=== PATIENT | female | born 1975 | race Caucasian/White ===

== ENCOUNTER 2024-12-21 21:05 | Emergency (ER) | payer MEDICARE, OTHER, SELFPAY ==
[2024-12-21 21:20] VITALS: BP 147/93
[2024-12-21 21:53] LABS: Hematocrit 39.3 % (37.0-47.0); Hemoglobin 14.1 g/dL (12.0-16.0); Mean Corp Hgb Conc. 35.9 g/dL (33.0-37.0); Mean Corpuscular Volume 94.0 fL (81.0-99.0); Nucleated Red Blood Cells % 0 %; Platelet Count 263 10^3/uL (130-400); Red Cell Dist. Width 12.0 % (11.5-14.5)
[2024-12-21 22:16] LABS: Troponin I < 0.012 ng/ml
[2024-12-21 22:18] LABS: ALT (SGPT) 50 U/L (0-35); AST (SGOT) 31 U/L (14-36); Albumin 5.1 g/dl (3.5-5.0); Alkaline Phosphatase 66 U/L (38-126); Blood Urea Nitrogen 21 mg/dl (7-17); Calcium 10.4 mg/dl (8.4-10.2); Carbon Dioxide 23 mmol/L (22-30); Chloride 105 mmol/L (98-107); Glucose 100 mg/dl (70-99); Potassium 4.0 mmol/L (3.5-5.1); Sodium 140 mmol/L (135-145); Total Protein 8.3 g/dl (6.3-8.2); eGFR 54.80
--- NOTE | 2024-12-22 00:08 | ED.GENMED ---
History of Present Illness
General
Chief Complaint: Heart Rate Problem
Source: patient
Exam Limitations: none
Time Seen by Provider: 12/22/24 00:04
History of Present Illness
History of Present Illness:
49-year-old female with 2+ days of feeling like her heart is fluttering and racing at times. Patient denies chest pain pleuritic pain fever cough. Actually denies shortness of breath. She did not understand what was meant by shortness of breath.
She has no shortness of breath with exertion.
Review of Systems
Review of Systems
All Other Systems: Not applicable
Constitutional: Denies fever or chills
Phy Exam
Physical Exam
Physical Exam:
GENERAL: Alert and oriented in no apparent distress
EYE: Orbits normal.
NECK: Supple, no thyroid palpable
ENT: Pharynx without erythema
CARDIAC: Regular rate and rhythm without any obvious murmurs.
LUNGS: Clear breath sounds,normal
ABDOMEN: Soft, without focal tenderness or distention
NEUROLOGICAL: Alert and oriented , grossly non-focal
SKIN: Warm and dry, no rash or lesion, no discoloration, skin intact.
MUSCULOSKELETAL: No edema,no deformity.Good color
PSYCH: Normal and appropriate interaction.
Course
Orders/Labs/Results
Orders:
Orders
12/21/24 21:25
Electrocardiogram (*1) Urgent
Reason for Study: Chest Pain
Cardiac Monitoring- Treatment ONCE
EKG- Treatment ONCE
IV Insert/Care/Rem.- Treatment PRN
O2 Therapy [RESP] Urgent
Titrate/Wean O2 to maintain O2 sat greater than (%): 90
Special Instructions: Maintain sats >/=90%
Pulse Ox/spot Check [RESP] Urgent
Quantity: 1
Special Instructions: ON ROOM AIR
12/21/24 21:44
Complete Blood Count/With Diff Urgent
Comprehensive Metabolic Panel Urgent
Free T4 Urgent
TSH Reflex To Free T4 Urgent
Comment: ADD ON
Troponin I Urgent
12/22/24 00:04
Add On- LAB Urgent
Tests Added?: tsh reflex t4
Abnormal Lab Results
12/21/24
21:44
RBC 4.18 L 10^6/uL
(4.20-5.40)
MCH 33.7 H pg
(27.0-31.0)
Absolute Monos (auto) 0.7 H 10^3/uL
(0.1-0.6)
Monocytes % 9.6 H %
(1.7-9.3)
BUN 21 H mg/dl
(7-17)
Creatinine 1.2 H mg/dL
(0.6-1.0)
Glucose 100 H mg/dl
(70-99)
Calcium 10.4 H mg/dl
(8.4-10.2)
ALT 50 H U/L
(0-35)
Total Protein 8.3 H g/dl
(6.3-8.2)
Albumin 5.1 H g/dl
(3.5-5.0)
TSH (Reflex) 9.77 H uIU/ml
(0.47-4.68)
Free T4 0.75 L ng/dl
(0.78-2.19)
12/21/24 21:44
12/21/24 21:44
Vital Signs
Initial and Last Documented VS:
Initial Vital Signs
Temp Pulse Resp BP Pulse Ox
99.0 F 88 18 147/93 98
12/21/24 21:20 12/21/24 21:20 12/21/24 21:20 12/21/24 21:20 12/21/24 21:20
Last Documented Vital Signs
Temp Pulse Resp BP Pulse Ox
99.0 F 69 16 126/77 97
12/21/24 21:20 12/22/24 01:45 12/22/24 01:45 12/22/24 01:00 12/22/24 01:45
MDM/Problems Addressed
Differential Diagnosis Includes:
Patient complaining of some heart palpitations or racing episodes. While I was listening to her heart which was in normal rhythm she says she felt the fluttering at that time. I did not appreciate any arrhythmias clinically. Very low suspicion
for pulmonary emboli. She does not have shortness of breath she has no tachycardia tachypnea hypoxia leg swelling cord etc. Low suspicion for life-threatening arrhythmia. No syncope or near syncope. No chest pain. Will add TSH. Monitor. If
all stable discharged to follow-up
*Pulse Oximetry
SaO2: 98
Oxygen Mode of Delivery: Room air
Patient hypoxic: no
*EKG
Interpreted by ED Provider?: Yes
Interpretation: normal
Comparison EKG: no comparison EKG present
Heart Rate: 78
Rate: normal
Rhythm: sinus
[place]: normal axis
Interval: normal interval
QRS Pattern: normal QRS
Ischemia: no ischemia
*Critical Care Note
Total Time (30-74mins, 75-104mins- exclusive of procedures): Not Applicable
Update Note
Update Note:
Patient has remained in a normal sinus rhythm here. No issues. Asymptomatic. No arrhythmias. She does have a high TSH with a low T4. Likely mildly hypothyroid. Does not require emergent treatment. Will be discharged to follow-up
ED Attending Note
-
Portions of this chart may have been created with voice recognition software.� Occasional wrong word or��sound alike� substitutions may have occurred due to the inherent limitations of voice recognition software.
Discharge Plan
Departure
Patient Disposition: Home (Routine Discharge)
Date of Disposition: 12/22/24
Time of Disposition: 02:08
Patient with high blood pressure during this ER visit?: Yes
Discharge Problem:
Palpitations, mild hypothyroidism
Instructions: Hypothyroidism (underactive thyroid), Palpitations (DC), BLOOD PRESSURE
Referrals:
Yen Myers MD [Consulting Staff, Endocrinology] - Next open appointment
Rony Carnes MD [Family Provider, Internal Medicine] - Follow up in 2-3 days
Activity Restrictions/Additional Instructions:
Follow-up with endocrinology or your primary physician concerning your thyroid.
Interventions
Interventions:
*Risk Screen - Suicide Last Done: 12/21/24 21:20
*General Assessment Last Done: 12/22/24 00:10
*Neglect/Abuse Screening Last Done: 12/22/24 00:10
*ED- Fall Risk Assessment Last Done: 12/22/24 00:10
*ED COVID-19 Vaccine History Last Done: 12/22/24 00:10
ED- Cardiac Assessment Last Done: 12/22/24 00:23
ED- Pulmonary Assessment Last Done: 12/22/24 00:23
Discharge Date and Time
Print Language: SYRIAC
[2024-12-22 00:09] VITALS: BP 144/86
[2024-12-22 00:10] VITALS: BMI 30.4
[2024-12-22 01:00] VITALS: BP 126/77
== END 2024-12-22 02:22 | disposition home or self-care (01) ==
LOC: EMR 21:05
PROVIDERS: Student in an Organized Health Care Education/Training Program; EMERGENCY PHYSICIAN Emergency Medicine; FAMILY PHYSICIAN Internal Medicine
DX: R00.2 Palpitations (principal); E03.9 Hypothyroidism, unspecified
CPT/HCPCS: 99284; 80053; 84439; 84443; 84484; 85025; 93005